=== PATIENT | female | born 1950 | race Caucasian/White ===

== ENCOUNTER 2017-08-31 20:33 | Emergency (ER) | payer OTHER ==
[~2017-08-31] VITALS: Ht 157.5 cm; Wt 79.7 kg
[2017-08-31] MEDS ORDERED: VALIUM2 MG PO (22:31)
[2017-08-31 22:41] VITALS: BP 136/78
== END 2017-08-31 22:42 | disposition home or self-care (01) ==
LOC: EME 20:33 → RME 20:33
PROC: 0HQ0XZZ Repair Scalp Skin, External Approach (ICD-10-PCS; principal; 2017-08-31)
PROC: 3E0234Z Introduction of Serum, Toxoid and Vaccine into Muscle, Percutaneous Approach (ICD-10-PCS; principal; 2017-08-31)
DX: S01.01XA Laceration without foreign body of scalp, initial encounter (principal); S16.1XXA Strain of muscle, fascia and tendon at neck level, initial encounter; S70.01XA Contusion of right hip, initial encounter; W01.0XXA Fall on same level from slipping, tripping and stumbling without subsequent striking against object, initial encounter; Y93.H9 Activity, other involving exterior property and land maintenance, building and construction; Y92.008 Other place in unspecified non-institutional (private) residence as the place of occurrence of the external cause; Z23 Encounter for immunization; Z88.2 Allergy status to sulfonamides
CPT/HCPCS: 70450; 72125; 99281; 99284